=== PATIENT | female | born 1955 | race Caucasian/White ===

== ENCOUNTER 2016-08-02 08:50 | Emergency (ER) | payer MEDICAID ==
[~2016-08-02] VITALS: Ht 154.9 cm; Wt 65.8 kg
[2016-08-02] MEDS ORDERED: GABAPENTIN 300 MG CAPSULE. PO STA (09:07)
--- NOTE | 2016-08-02 09:17 | PHYS DOC ---
Past Medical History Past Medical History: COPD, Diabetes-Type II, GERD Additional Past Medical Histor: Personality Disorder, chronic back pain, hernia Past Surgical History: Cholecystectomy, Tubal ligation Additional Past Surgical Histo: Rt AKA Alcohol Use: None Drug Use: None Adult General Chief Complaint Chief Complaint: HAND PROBLEM HPI HPI Patient is a 61 year old female with history of diabetes type 2, COPD, right below the knee amputation, homelessness, who presents today with chronic tingling in her fingers. Patient states this has been going on for months. Patient is also complaining of urinary incontinence which she states has been going on for months. She states she was seen at [facility] yesterday for the same complaints. She states they did work her up and everything was negative. She states she is homeless and got a ride from [place] to [place] , she states she got a place to stay from the local police who paid for her hotel last night. She states she had to call the EMS to bring her back to the ED today. She is mostly requesting a ride to go to the [facility] so that she can find out where her check is from the Social Security office. Patient denies any chest pain, denies any shortness of breath, denies any headache. Denies any nausea vomiting. Review of Systems Review of Systems Constitutional: Denies fever or chills [] Eyes: Denies change in visual acuity, redness, or eye pain [] HENT: Denies nasal congestion or sore throat [] Respiratory: Denies cough or shortness of breath [] Cardiovascular: No additional information not addressed in HPI [] GI: Denies abdominal pain, nausea, vomiting, bloody stools or diarrhea [] : Urinary incontinence Musculoskeletal: Tingling in fingers Integument: Denies rash or skin lesions [] Neurologic: Denies headache, focal weakness or sensory changes [] Endocrine: Denies polyuria or polydipsia [] Current Medications Current Medications Current Medications Medications (Trade) Dose Ordered Sig/Danelle Start Time Stop Time Status Last Admin Dose Admin Ceftriaxone Sodium (Rocephin Im) 1 gm 1X ONCE 08/02/16 11:30 08/02/16 11:31 DC 08/02/16 11:39 1 GM Gabapentin (Neurontin) 300 mg 1X STAT 08/02/16 09:07 08/02/16 09:10 DC 08/02/16 09:30 300 MG Lidocaine HCl (Xylocaine-Mpf 1% Vial) 2 ml 1X ONCE 08/02/16 11:30 08/02/16 11:31 DC 08/02/16 11:39 2 ML Allergies Allergies Allergies Coded Allergies Type Severity Reaction Last Updated Verified acetaminophen Allergy Intermediate 08/02/16 Yes chlorpheniramine Allergy Intermediate 08/02/16 Yes morphine Allergy Intermediate 08/02/16 Yes phenylpropanolamine Allergy Intermediate 08/02/16 Yes Physical Exam Physical Exam Constitutional: Well developed, well nourished, no acute distress, non-toxic appearance. [] HENT: Normocephalic, atraumatic, bilateral external ears normal, oropharynx moist, no oral exudates, nose normal. [] Eyes: PERRLA, EOMI, conjunctiva normal, no discharge. [] Neck: Normal range of motion, no tenderness, supple, no stridor. [] Cardiovascular:Heart rate regular rhythm, no murmur [] Lungs & Thorax: Bilateral breath sounds clear to auscultation [] Abdomen: Bowel sounds normal, soft, no tenderness, no masses, no pulsatile masses. [] Skin: Warm, dry, no erythema, no rash. [] Back: No tenderness, no CVA tenderness. [] Extremities: Right below the knee amputation noted. Bilateral fingernails are very dirty. Adequate sensation to all the fingers. Patient able to identify sharp and dull pricks. Adequate medial radial and ulnar sensation to bilateral fingers. +2 bilateral radial pulses. Cap refill less than 2 seconds bilateral fingers. Neurologic: Alert and oriented X 3, normal motor function, normal sensory function, no focal deficits noted. [] Psychologic: Affect normal, judgement normal, mood normal. [] Current Patient Data Vital Signs Vital Signs Date Time Temp Pulse Resp B/P Pulse Ox O2 Delivery O2 Flow Rate FiO2 08/02/16 13:04 92 22 102/56 90 08/02/16 08:57 97.1 Room Air 97.1 Lab Values Laboratory Tests Test 08/02/16 09:15 08/02/16 09:25 Urine Collection Type U cath Urine Color Meka Urine Clarity Clear Urine pH 6.0 Urine Specific [place] 1.020 Urine Protein Negativemg/dL (NEG-TRACE) Urine Glucose (UA) 250mg/dL (NEG) Urine Ketones (Stick) Negativemg/dL (NEG) Urine Blood Negative (NEG) Urine Nitrite Negative (NEG) Urine Bilirubin Small (NEG) Urine Urobilinogen Dipstick 1.0mg/dL (0.2 mg/dL) Urine Leukocyte Esterase Small (NEG) Urine RBC 0/HPF (0-2) Urine WBC 1-4/HPF (0-4) Urine Squamous Epithelial Cells Occ/LPF Urine Bacteria 0/HPF (0-FEW) Urine Hyaline Casts Many/HPF White Blood Count 12.7x10^3/uL (4.0-11.0) H Red Blood Count 5.81x10^6/uL (3.50-5.40) H Hemoglobin 16.3g/dL (12.0-15.5) H Hematocrit 49.2% (36.0-47.0) H Mean Corpuscular Volume 85fL (79-100) Mean Corpuscular Hemoglobin 28pg (25-35) Mean Corpuscular Hemoglobin Concent 33g/dL (31-37) Red Cell Distribution Width 15.5% (11.5-14.5) H Platelet Count 314x10^3/uL (140-400) Neutrophils (%) (Auto) 77% (31-73) H Lymphocytes (%) (Auto) 16% (24-48) L Monocytes (%) (Auto) 5% (0-9) Eosinophils (%) (Auto) 1% (0-3) Basophils (%) (Auto) 1% (0-3) Neutrophils # (Auto) 9.8x10^3uL (1.8-7.7) H Lymphocytes # (Auto) 2.1x10^3/uL (1.0-4.8) Monocytes # (Auto) 0.6x10^3/uL (0.0-1.1) Eosinophils # (Auto) 0.1x10^3/uL (0.0-0.7) Basophils # (Auto) 0.1x10^3/uL (0.0-0.2) Sodium Level 144mmol/L (136-145) Potassium Level 4.4mmol/L (3.5-5.1) Chloride Level 104mmol/L (98-107) Carbon Dioxide Level 28mmol/L (21-32) Anion Gap 12 (6-14) Blood Urea Nitrogen 15mg/dL (7-20) Creatinine 0.7mg/dL (0.6-1.0) Estimated GFR (Cockcroft-Gault) 85.6 BUN/Creatinine Ratio 21 (6-20) H Glucose Level 253mg/dL (70-99) H Calcium Level 10.2mg/dL (8.5-10.1) H Total Bilirubin 0.4mg/dL (0.2-1.0) Aspartate Amino Transferase (AST) 18U/L (15-37) Alanine Aminotransferase (ALT) 25U/L (14-59) Alkaline Phosphatase 127U/L (46-116) H Total Protein 8.0g/dL (6.4-8.2) Albumin 3.7g/dL (3.4-5.0) Albumin/Globulin Ratio 0.9 (1.0-1.7) L Lipase 164U/L (73-393) Laboratory Tests 08/02/16 09:25 Laboratory Tests 08/02/16 09:25 EKG EKG [] Radiology/Procedures Radiology/Procedures [] Course & Med Decision Making Course & Med Decision Making Pertinent Labs and Imaging studies reviewed. (See chart for details) This is a homeless patient who presents to the ED complaining of numbness to her fingers which is chronic from her diabetes neuropathy, she is also complaining of urinary incontinence for a few days. Patient was seen at [facility] yesterday. She states she got a ride from [facility] to [place] area she states she is currently looking for another ride from [place] to [place] to check on her social security check. We did call the social sciences instructor to come help patient with her living situation. Urine is noted for UTI. CBC with a WBC of 12.7, CMP with glucose of 253, normal anion gap, patient is aware she has diabetes and no follow up plan, I did provide her a clinic list. Discharged with Keflex, given a shot of Rocephin in the Ed. Discharged with gabapentin for neuropathy. Provided return precautions and discharged in stable condition. Patient is waiting for placement. linotype worker stated taxi will come and pick patient up at 4 PM and take her to homeless snf. Dragon Disclaimer Dragon Disclaimer This electronic medical record was generated, in whole or in part, using a voice recognition dictation system. Departure Departure Impression: Primary Impression: Urinary tract infection Additional Impressions: Diabetes mellitus with neuropathy Homelessness Hyperglycemia Disposition: HOME, SELF-CARE Condition: STABLE Patient Instructions: Diabetic Neuropathy, Urinary Tract Infection Additional Instructions: You were seen for multiple complaints. We sent you home with gabapentin for neuropathy. We also sent you home with Keflex for UTI. Take it as prescribed and ensure you complete it. Your blood sugars are high. We recommend you follow- up with a primary care doctor for diabetes management. Scripts Gabapentin 300 Mg [id number] Mg PO TID #30 CAP Prov:YESSICA ISBELL CERTIFIED VETERINARY TECHNICIAN 08/02/16 Cephalexin 500 Mg Capsule1 Cap PO BID #14 CAP Prov:YESSICA ISBELL APRN 08/02/16 Problem Qualifiers Primary Impression: Urinary tract infection Urinary tract infection type: site unspecified Hematuria presence: without hematuria Qualified Code: N39.0 - Urinary tract infection, site not specified Additional Impressions: Diabetes mellitus with neuropathy Diabetes mellitus type: type 2 Diabetes mellitus local intermodal truck driver insulin use: unspecified prison insulin use status Qualified Code: E11.40 - Type 2 diabetes mellitus with diabetic neuropathy, unspecified YESSICA ISBELL APRN Aug 02, 2016 09:17
[2016-08-02 09:29] LABS: BILIRUBIN,URINE SMALL (NEG); GLUCOSE,URINE 250 mg/dL (NEG); NITRITE,URINE NEGATIVE (NEG); PROTEIN,URINE NEGATIVE (NEG-TRACE)
[2016-08-02 09:38] LABS: RBC,URINE 0 /HPF (0-2)
[2016-08-02 09:39] LABS: BACTERIA,URINE 0 /HPF (0-FEW); SQUAMOUS EPITHELIAL CELL,UR OCC /LPF
[2016-08-02 10:04] LABS: CALCIUM 10.2 mg/dL (8.5-10.1); CREATININE 0.7 mg/dL (0.6-1.0); GFR 85.6; POTASSIUM 4.4 mmol/L (3.5-5.1)
[2016-08-02 10:12] LABS: ALBUMIN 3.7 g/dL (3.4-5.0); ALBUMIN/GLOBULIN RATIO 0.9 (1.0-1.7); BASO # 0.1 x10^3/uL (0.0-0.2); BASO % 1 % (0-3); EOS % 1 % (0-3); HEMATOCRIT 49.2 % (36.0-47.0); HEMOGLOBIN 16.3 g/dL (12.0-15.5); LYMPH # 2.1 x10^3/uL (1.0-4.8); LYMPH % 16 % (24-48); MEAN CORPUSCULAR HEMOGLOBIN 28 pg (25-35); MEAN CORPUSCULAR HGB CONC 33 g/dL (31-37); MEAN CORPUSCULAR VOLUME 85 fL (79-100); MONO % 5 % (0-9); NEUT % 77 % (31-73); PLATELET COUNT 314 x10^3/uL (140-400); RED BLOOD COUNT 5.81 x10^6/uL (3.50-5.40); RED CELL DISTRIBUTION WIDTH 15.5 % (11.5-14.5); TOTAL BILIRUBIN 0.4 mg/dL (0.2-1.0); WHITE BLOOD COUNT 12.7 x10^3/uL (4.0-11.0)
[2016-08-02] MEDS ORDERED: GABA-586 PO (11:23)
[2016-08-02] MEDS ORDERED: CEPH500C PO (11:23)
[2016-08-02] MEDS ORDERED: CEFTRIAXONE IM 1 GM VIAL. IM ONE (11:30)
[2016-08-02] MEDS ORDERED: LIDOCAINE 1% PF 2 ML VIAL. INJ ONE (11:30)
[2016-08-02 13:04] VITALS: BP 102/56
--- NOTE | 2016-08-04 15:17 | VNOTE ---
CALL BACK NOTE CALL BACK Microbiology 08/02/16 Urine Culture - Final, Complete 08/02/16 Urine Culture Result 1 (WES) - Final, Complete 08/02/16 Antimicrobic Susceptibility - Final, Complete Urine culture was positive for coagulase negative staphylococcus. Patient was placed on Keflex at discharge. According to the cultures and sensitivity report Keflex will not take care of the infection. Attempted to contact patient with no phone number noted from registration, no address noted for certified letter. Patient information will be provided to Beulah Mann MSN, RN emergency architecture department chair for further options to contact this patient. MICHAEL PORTER NP Aug 04, 2016 15:17
== END 2016-08-02 15:55 | disposition home or self-care (01) ==
LOC: ER 08:50
DX: N39.0 Urinary tract infection, site not specified (principal); E11.40 Type 2 diabetes mellitus with diabetic neuropathy, unspecified; E11.65 Type 2 diabetes mellitus with hyperglycemia; J44.9 Chronic obstructive pulmonary disease, unspecified; K21.9 Gastro-esophageal reflux disease without esophagitis; G89.29 Other chronic pain; Z89.611 Acquired absence of right leg above knee; Z88.8 Allergy status to other drugs, medicaments and biological substances; Z88.5 Allergy status to narcotic agent; Z59.0 Homelessness
CPT/HCPCS: 36415; 51701; 80053; 81001; 83690; 85027; 87086; 96372; 99284; J0696